=== PATIENT | male | born 1945 | race Hispanic/Latino ===

== ENCOUNTER 2018-06-18 11:18 | Inpatient (IN) | payer MEDICARE ==
[~2018-06-18] VITALS: Ht 172.7 cm; Wt 71.2 kg
[~2018-06-18 11:18] MED LIST: ACETAMINOPHEN650 MG PO; ASPIR 8181 MG PO; ASPIRIN325 MG PO; DOXYCYCLINE HY100 MG PO; FLOMAX0.4 MG PO; GABAPENTIN300 MG PO; METFORMIN HCL500 MG PO; METOPROLOL SUCC50 MG PO; PLAVIX75 MG PO
[2018-06-18] MEDS ORDERED: LACTATED RINGER'S 1,000 ML IV ONE (12:00)
[2018-06-18] MEDS ORDERED: VANCOMYCIN 1GM/NS 250 ML 250 ML IV ONE (12:00)
[2018-06-18] MEDS ORDERED: PIPER-TAZ 3.375 GM 50 ML IV ONE (12:00)
[2018-06-18] MEDS ORDERED: MORPHINE SULFATE 2 MG/ML SYR IV PRN (12:05)
[2018-06-18 12:07] LABS: BASOPHILS # (AUTO) 0.1 (0.0-0.1); BASOPHILS % 0.5 % (0.0-1.0); EOSINOPHILS # (AUTO) 0.1 (0.0-0.4); EOSINOPHILS % 0.9 % (0.0-6.0); HEMATOCRIT 35.4 % (38.2-49.6); HEMOGLOBIN 12.1 g/dL (14.0-18.0); LYMPHOCYTES # (AUTO) 3.4 (1.0-3.2); MEAN CORPUSCULAR HEMOGLOBIN 32.4 pg (28-32); MEAN CORPUSCULAR HGB CONC 34.2 g/dL (31-35); MEAN CORPUSCULAR VOLUME 94.7 fL (81-99); MONOCYTES # (AUTO) 1.1 (0.2-0.8); NEUTROPHILS # (AUTO) 10.6 (2.1-6.9); NEUTROPHILS % 69.3 % (38.7-80.0); PLATELET COUNT 550 x10e3/uL (140-360); RED BLOOD COUNT 3.74 x10e6/uL (4.3-5.7)
[2018-06-18 12:11] LABS: INR 1.18; PROTHROMBIN TIME 14.1 seconds (11.9-14.5)
[2018-06-18 12:12] LABS: PARTIAL THROMBOPLASTIN TIME 39.1 seconds (23.8-35.5)
[2018-06-18] MEDS ORDERED: ZOLPIDEM TARTRATE 5 MG TAB PO PRN (12:15)
[2018-06-18] MEDS ORDERED: DEXTROSE 50% SYRINGE 50 ML IV PRN (12:15)
[2018-06-18] MEDS ORDERED: HYDROCODONE/APAP 7.5MG-325MG 1 EA TAB PO PRN (12:15)
[2018-06-18] MEDS ORDERED: ONDANSETRON HCL INJ 2 MG/ML VIAL IV PRN (12:15)
[2018-06-18] MEDS ORDERED: CLONIDINE HCL 0.2 MG TAB PO PRN (12:15)
[2018-06-18] MEDS ORDERED: ENALAPRILAT IV INJ 1.25 MG/ML VIAL IV PRN (12:15)
[2018-06-18 12:22] LABS: ALANINE AMINOTRANSFERASE 19 IU/L (0-55); ALBUMIN 3.3 g/dL (3.5-5.0); ALBUMIN/GLOBULIN RATIO 0.7 (0.8-2.0); ALKALINE PHOSPHATASE 139 IU/L (40-150); ANION GAP 15.3 mmol/L (8-16); BLOOD UREA NITROGEN 24 mg/dL (7-26); BUN/CREATININE RATIO 25 (6-25); CALCIUM 10.4 mg/dL (8.4-10.2); CARBON DIOXIDE 27 mmol/L (22-29); CHLORIDE 100 mmol/L (98-107); CREATININE, SERUM 0.95 mg/dL (0.72-1.25); EST GLOMERULAR FILTRATION RATE > 60 ML/MIN (60-); GLUCOSE 273 mg/dL (74-118); POTASSIUM 4.3 mmol/L (3.5-5.1); SODIUM 138 mmol/L (136-145)
[2018-06-18] MEDS: INSULIN REGULAR, HUMAN 100 UNIT/1 ML 3ML VIAL SQ SCH ×2 (13:30→20:30)
--- NOTE | 2018-06-18 13:34 | Diagnostic Imaging Report ---
PROCEDURE:X-RAY RIGHT FOOT, COMPLETE COMPARISON:None. INDICATIONS:RIGHT FOOT INFECTION FINDINGS: There are no fractures, dislocations, lytic or blastic lesions. Questionable mild erosive changes of the medial tip of the first metatarsal bone. Adjacent mild soft tissue irregularity, may represent ulcer. Status post second toe amputation at the level of the metatarsophalangeal joint. Vascular calcifications. Hallus valgus deformity. CONCLUSION: Questionable mild erosive changes of the medial tip of the first metatarsal bone, could represent osteomyelitis in the appropriate clinical setting. Foot MRI can be obtained to confirm. Dictated by: Robi Lewis M.D. on 06/18/2018 at 13:39 Electronically approved by: Robi Lewis M.D. on 06/18/2018 at 13:39
[2018-06-18] MEDS ORDERED: DOXYCYCLINE PO (14:05)
[2018-06-18] MEDS ORDERED: LOSARTAN HCT PO (14:05)
[2018-06-18] MEDS ORDERED: GLIPIZIDE XL10 MG PO (14:05)
[2018-06-18] MEDS ORDERED: atorvastin PO (14:05)
[2018-06-18] MEDS: ACETAMINOPHEN 325 MG TAB PO PRN (15:11)
[2018-06-18 18:00] VITALS: BP 133/76
[2018-06-18] MEDS ORDERED: LACTATED RINGER'S 1,000 ML ONE (20:33)
[2018-06-18] MEDS: CEFAZOLIN SOD 1 GM VIAL IV SCH (20:45)
[2018-06-18 20:54] VITALS: BP 157/74
[2018-06-19] VITALS (9 sets, daily range): BP systolic 108–131; BP diastolic 57–66
[2018-06-19] MEDS: CEFAZOLIN SOD 1 GM VIAL IV SCH ×2 (05:39→12:40)
[2018-06-19 05:44] LABS: BASOPHILS # (AUTO) 0.1 (0.0-0.1); BASOPHILS % 0.6 % (0.0-1.0); EOSINOPHILS # (AUTO) 0.2 (0.0-0.4); EOSINOPHILS % 1.5 % (0.0-6.0); HEMATOCRIT 30.6 % (38.2-49.6); HEMOGLOBIN 10.7 g/dL (14.0-18.0); LYMPHOCYTES # (AUTO) 3.3 (1.0-3.2); LYMPHOCYTES % 26.5 % (18.0-39.1); MEAN CORPUSCULAR VOLUME 94.4 fL (81-99); MONOCYTES % 8.1 % (4.4-11.3); NEUTROPHILS # (AUTO) 7.8 (2.1-6.9); NEUTROPHILS % 62.9 % (38.7-80.0); PLATELET COUNT 455 x10e3/uL (140-360); RED BLOOD COUNT 3.24 x10e6/uL (4.3-5.7); RED CELL DISTRIBUTION WIDTH 11.9 % (11.7-14.4)
[2018-06-19] MEDS: ACETAMINOPHEN 325 MG TAB PO PRN (05:44)
[2018-06-19 05:57] LABS: ALANINE AMINOTRANSFERASE 14 IU/L (0-55); ALBUMIN 2.7 g/dL (3.5-5.0); ALBUMIN/GLOBULIN RATIO 0.7 (0.8-2.0); ALKALINE PHOSPHATASE 94 IU/L (40-150); BLOOD UREA NITROGEN 17 mg/dL (7-26); BUN/CREATININE RATIO 22 (6-25); CALCIUM 9.7 mg/dL (8.4-10.2); CARBON DIOXIDE 29 mmol/L (22-29); CHLORIDE 103 mmol/L (98-107); CHOLESTEROL 89 MD/DL (0-199); CREATININE, SERUM 0.76 mg/dL (0.72-1.25); EST GLOMERULAR FILTRATION RATE > 60 ML/MIN (60-); GLUCOSE 147 mg/dL (74-118); HDL CHOLESTEROL 22 MG/DL (40-60); LDL CHOLESTEROL 43 MG/DL (60-130); PHOSPHORUS 3.6 MG/DL (2.3-4.7); SODIUM 140 mmol/L (136-145); TRIGLYCERIDES 118 MG/DL (0-149)
[2018-06-19] MEDS ORDERED: CEFAZOLIN SOD 1 GM/D5W 50ML 50 ML IV SCH (06:00)
[2018-06-19 06:01] LABS: MAGNESIUM 1.1 MG/DL (1.3-2.1)
[2018-06-19] MEDS ORDERED: MAGNESIUM SULFATE 2GM/50ML 50 ML IV ONE (06:30)
--- NOTE | 2018-06-19 07:26 | History and Physical ---
PRIMARY CARE PHYSICIAN: Dr. Goddard CHIEF COMPLAINT: Right foot infection. HISTORY OF PRESENT ILLNESS: This is a 72-year-old man with a history of diabetes mellitus, type 2, now developing right foot 1st metatarsal joint infection at that site. Had been on antibiotics for about 2 weeks, but symptoms persisted. Was brought to the hospital by his . He denies any fevers. Denies any other symptoms at this time. The patient is a poor historian. PAST MEDICAL HISTORY: Diabetes mellitus, type 2, coronary artery disease, status post coronary artery bypass grafting in 2010, hypertension, hyperlipidemia, history of cigarette use. PAST SURGICAL HISTORY: Coronary artery bypass grafting. ALLERGIES: PER ELECTRONIC MEDICAL RECORDS. FAMILY HISTORY/SOCIAL HISTORY: Patient is and has 5 children. No alcohol or illicits. He quit cigarettes 3 weeks ago. MEDICATIONS: Per electronic medical record. REVIEW OF SYSTEMS: Denies any dizziness, chest pain, shortness of breath, fever, chills, sweats, nausea, vomiting, diarrhea, back pain, headache. PHYSICAL EXAMINATION VITAL SIGNS: Have been reviewed. GENERAL: A tired-appearing man resting in bed. HEENT: Anicteric. Pupils respond to light. No oral lesions. CARDIOVASCULAR: Normal S1 and S2. LUNGS: Moderate breath sounds. ABDOMEN: Soft, nontender and nondistended. EXTREMITIES: No edema or calf tenderness. On the left foot, he does have a bunion on the left foot. On the right foot, he has an ulcer at the bunion site with some pus. No real odor. There is no tenderness. Foot is warm. Dorsalis pedis is 1-2+. SKIN: Dry. PSYCHIATRIC: Flat affect. NEUROLOGICAL: Alert and oriented times 3. LABS: Reviewed. MEDICATIONS: Reviewed. ASSESSMENT AND PLAN: A 72-year-old man with: 1. Likely osteomyelitis to the right foot. 2. Hypomagnesemia. 3. Diabetes mellitus, type 2. 4. History of cigarette use. 5. Insomnia. 6. Hyperlipidemia. 7. Hypertension. PLAN 1. Continue antibiotics. 2. Consult infectious disease. 3. Follow up podiatry recommendations. 4. Obtain MRI of the foot to confirm osteomyelitis. 5. Follow up blood cultures and obtain wound culture. 6. Use Lovenox and Pepcid for prophylaxis. 7. Follow up recommendations and cultures. Job#: [id number] FABIÁN
[2018-06-19] MEDS: HYDROCHLOROTHIAZIDE 25 MG TAB PO SCH (08:25)
[2018-06-19] MEDS: FAMOTIDINE 20 MG TAB PO SCH ×2 (08:25→17:51)
[2018-06-19] MEDS: INSULIN REGULAR, HUMAN 100 UNIT/1 ML 3ML VIAL SQ SCH ×4 (08:25→21:35)
[2018-06-19] MEDS: ASPIRIN 81 MG ENTERIC COATED PO SCH (08:25)
[2018-06-19] MEDS ORDERED: [UNRECOGNIZED DRUG - MIXTURE] PO SCH (09:00)
--- NOTE | 2018-06-19 12:05 | Diagnostic Imaging Report ---
TECHNIQUE: Magnetic resonance imaging of the RIGHT foot was performed WITHOUT injected contrast. HISTORY: Foot pain COMPARISON: None available. DISCUSSION: Soft tissue ulceration at the medial forefoot adjacent to the metatarsal head. Bone marrow edema and T1 replacement of the first metatarsal head and mildly involving the base of the proximal phalanx. Effusion of the first MTP joint. Mild atrophy of the foot musculature. Soft tissue edema surrounding the hallux. No abscess. IMPRESSION: Osteomyelitis of the first metatarsal head and possible osteomyelitis proximal phalanx with septic arthritis first MTP joint. Signed by: Dr. Juan Alberto Flower M.D. on 06/19/2018 12:02 PM
[2018-06-19] MEDS: VANCOMYCIN 1GM/NS 250 ML 250 ML IV SCH (12:39)
[2018-06-19] MEDS: LOSARTAN POTASSIUM 100 MG TAB PO SCH (12:39)
--- NOTE | 2018-06-19 13:47 | Consultation ---
DATE OF CONSULTATION: June 19, 2018 ATTENDING PHYSICIAN: Dr. Jay Jamison REASON FOR CONSULTATION: Osteomyelitis. Thank you, Dr. Jamison, for asking me to see this patient. HISTORY: The patient is a 72-year-old man referred for osteomyelitis. He presented to the emergency department yesterday with worsening right foot ulcer. He denies fever and chills. The ulcer began about 3 weeks ago abruptly. The patient does not recall how the ulcer started and denies trauma. The patient was evaluated outpatient by the program advocate and treated with oral antibiotic without response. In the emergency department, he was noted to have temperature of 98 degrees Fahrenheit, pulse 85, respiratory rate 18, blood pressure 134/71. Initial laboratory studies showed blood leukocyte count of 15,240 with 69.3% neutrophils and blood glucose 273. PAST MEDICAL HISTORY: Diabetes mellitus type 2, hypertension, hyperlipidemia and coronary artery disease. PAST SURGICAL HISTORY: Coronary artery bypass, amputation of 2nd toe of the left foot, and amputation of the 2nd toe of the right foot. ALLERGIES: NO KNOWN DRUG ALLERGIES. MEDICATIONS: The current antibiotics are cefazolin 1 gram IV piggyback q.8 h. and vancomycin 1 gram IV piggyback daily. Patient received Zosyn 3.375 grams IV piggyback once. IMMUNIZATIONS: He does not recall receiving tetanus-diphtheria vaccine in the past 10 years. Also, he does not recall receiving a pneumococcal vaccination. FAMILY HISTORY: Noncontributory. SOCIAL HISTORY: He smoked a pack of cigarettes a day from age 17 to 2 weeks ago. He denies alcohol use. REVIEW OF SYSTEMS: As per present illness. He denies fever, chills, cough, shortness of breath, chest pain, nausea, vomiting, diarrhea and dysuria. Also denies right foot pain. PHYSICAL EXAMINATION VITAL SIGNS: T-max 98.7, pulse 74, respiratory rate 20. Blood pressure 108/59. Weight 157 pounds. GENERAL: No acute distress. HEENT: Normocephalic. There is no icterus or injection of the conjunctivae. There is no ear or nasal discharge. Moist oral mucosa with poor dentition. No pharyngeal erythema or exudate. NECK: Supple. No lymphadenopathy or meningismus. LUNGS: Clear to auscultation bilaterally. HEART: Normal S1 and S2. Regular. ABDOMEN: Soft and nontender. EXTREMITIES: There is mild erythema of the right forefoot. There is an ulcer over the medial aspect of the 1st metatarsophalangeal joint of the right foot with 100% slough and malodorous discharge. There is no tenderness on palpation. The dorsalis pedis and posterior tibial pulses are difficult to palpate. There is no edema, clubbing or cyanosis. SKIN: As per extremities. MACHINE SET UP OPERATOR PAPER GOODS: Awake, alert and oriented to person, place and time. There is decreased sensation on monofilament examination of the feet. Nonfocal. LABORATORY AND DIAGNOSTICS: WBC 12,440, hemoglobin 10.7, platelets 455,000, neutrophils 62.9, lymphs 26.5, monos 8.1, eosinophils 1.5, basophils 0.6. Erythrocyte sedimentation rate 91. BUN 17, creatinine 0.7, and blood glucose 127. Blood culture showed no growth. Right foot MRI showed osteomyelitis of the 1st metatarsal head and possible osteomyelitis of the proximal phalanx with septic arthritis of the 1st metatarsophalangeal joint. IMPRESSION 1. Infected right diabetic foot ulcer. 2. Cellulitis of the right foot. 3. Osteomyelitis of the right 1st metatarsal head and proximal phalanx. 4. Septic arthritis of the right 1st metatarsophalangeal joint. 5. Tobacco use disorder. 6. Diabetes mellitus, type 2, with peripheral neuropathy, uncontrolled. PLAN 1. Check arterial ultrasound of the lower extremities. 2. Await possible right 1st metatarsophalangeal joint aspiration. 3. Change cephazolin to Zosyn 3.375 grams IV piggyback q.8 h., infuse over 4 hours. 4. Administer tetanus-diphtheria vaccination today and a pneumococcal vaccination prior to discharge. 5. Smoking cessation counseling provided to the patient, and he understands. He denies pharmacologic intervention at this time. Job#: [id number]
[2018-06-19] MEDS: PIPER-TAZ 3.375 GM 50 ML IV SCH ×2 (14:00→21:30)
[2018-06-19] MEDS: ENOXAPARIN SOD INJ 40 MG/0.4 ML SYR SC SCH (17:51)
--- NOTE | 2018-06-19 19:53 | Consultation ---
DATE OF CONSULTATION: June 19, 2018 CHIEF COMPLAINT/HISTORY OF CHIEF COMPLAINT: Mr. Gaspar is a pleasant 72-year-old male who has a long history of diabetes and has recently been experiencing drainage, swelling and redness about the 1st metatarsophalangeal joint of the right foot. Apparently last year he underwent an amputation of the 2nd digit of that same foot here by Dr. Connie Gutiérrez. She has recently seen him on an outpatient basis in her office and had him on oral antibiotics and local wound care for this current wound. The patient's states that the condition worsened and the additional symptom of redness and drainage ensued, and, therefore, she brought him to the emergency room and he has now been admitted. The patient's previous medical history does include diabetes and coronary artery disease having had a coronary artery bypass graft in 2010. He has a history also of hypertension, hyperlipidemia and has a long history of smoking. He states he quit smoking 2 weeks ago but has smoked since 17 years of age otherwise PREVIOUS SURGICAL HISTORY: Includes the coronary artery disease with bypass grafting. ALLERGIES: NO KNOWN DRUG ALLERGIES. SOCIAL HISTORY: The patient is and lives with his . He has 5 children. MEDICATIONS: Well documented elsewhere within the chart. REVIEW OF SYSTEMS: The patient has no other significant positives on his review of systems other than a wound in the right foot. He denies fever, nausea, vomiting or chest pain. PHYSICAL EVALUATION OF LOWER EXTREMITIES: Vascular status: The patient has nonpalpable pedal pulses near the dorsalis pedis or posterior tibial. Arterial Dopplers and ultrasound have previously been ordered and are not yet available. Neurological: The patient has a loss of protective sensation as evidenced by [place]-Robbi monofilament testing. Dermatologic: There is a large ulcer present on the medial aspect of the 1st metatarsophalangeal joint of the right foot. The wound appears to be full thickness down to the capsule and bone with a loose appearing septic joint that is draining. Musculoskeletal: As above. He is status post amputation of the 2nd digit and now has a septic arthritis with osteomyelitis of the 1st metatarsophalangeal joint. MRI is positive for the same indicating osteomyelitis and septic arthritis of the 1st metatarsophalangeal joint. He is currently on IV antibiotics and he is being seen by infectious disease. Blood cultures and wound cultures have been obtained. RECOMMENDATIONS: At this point would be for surgical intervention to include at the very least an I\T\D with bone debridement of the joint and more likely amputation of the 1st digit proximal to the metatarsophalangeal joint. Dr. Ponce is his fruit raiser and has been notified of his admission and will follow with him tomorrow to make further recommendations for more definitive care. In the interim, Aquacel [employer] has been ordered to applied to the wound once daily by [place] of wound care and this will be continued until surgical intervention or appropriate treatment as directed by Dr. Gutiérrez. Job#: [id number]
[2018-06-19] MEDS ORDERED: ATORVASTATIN 10 MG PO SCH (21:00)
[2018-06-19] MEDS: ATORVASTATIN 10 MG TAB PO SCH (21:30)
[2018-06-20] VITALS (8 sets, daily range): BP systolic 106–132; BP diastolic 55–63
[2018-06-20] MEDS: PIPER-TAZ 3.375 GM 50 ML IV SCH ×3 (05:27→21:48)
[2018-06-20] MEDS: FAMOTIDINE 20 MG TAB PO SCH ×2 (08:24→17:59)
[2018-06-20] MEDS: ASPIRIN 81 MG ENTERIC COATED PO SCH (08:24)
[2018-06-20] MEDS: INSULIN REGULAR, HUMAN 100 UNIT/1 ML 3ML VIAL SQ SCH ×4 (08:40→21:00)
--- NOTE | 2018-06-20 09:35 | Progress Note ---
DATE: June 20, 2018 The patient was seen at bedside. Full-thickness ulcer down to the bone to the right 1st MPJ. Pedal pulses are diminished. Protective threshold is diminished, intrinsic type of foot. He has a history of amputations that have healed with advanced local wound care. The ulcer probes down to the bone. The bone is exposed. Metatarsal head is eroded. It is soft. There is osteomyelitis to the area. His white blood count is elevated. It is trending down now secondary to the IV antibiotics. The MRI was positive for osteomyelitis of the 1st head in the proximal phalanx with septic arthritis. ASSESSMENT 1. Ulcer, grade 3, right hallux. 2. Diabetes with neuropathy and peripheral vascular disease. PLAN: I discussed treatment with the patient. He is n.p.o. after midnight today. I am going to take him to the OR for debridement of nonviable tissue to include probably a partial 1st metatarsal amputation. After surgery, I suspect he is going to need wound VAC and IV antibiotics. For discharge planning on the long run, he will need a wound VAC to go home. I suspect IV antibiotics. He is scheduled for surgery tomorrow at 6:30 p.m. He is to be consented tonight. I discussed with the patient and family. They are aware of the risks and complications. I will continue to follow. Job#: [id number] FABIÁN
--- NOTE | 2018-06-20 10:51 | Cardiology Report ---
DATE OF STUDY: June 17, 2018 DOPPLER SCAN OF LOWER EXTREMITY ARTERIES The lower extremity arteries were interrogated using the duplex scanning method. No segmental pressure measurements or ankle brachial indices submitted for interpretation. Duplex scan showed velocity of 2 meters per second in the right common femoral artery, and in the right femoral artery in the midportion was 1.8 meters per second. Further distally beyond the popliteal artery, the waveform became monophasic. On the left side, velocity was 2.2 meters per second in the distal left common femoral artery gradually decreasing to zero in the distal left femoral artery. This, however, bypass graft which showed biphasic waveform and still patent. CONCLUSION 1. Patent left femoral bypass graft with [place] distal left femoral artery being occluded. 2. Moderate stenosis involving both common femoral arteries with velocity in range of 2 to 2.2 meter per second. 3. Probable high-grade stenosis in the distal right femoral artery with monophasic waveform in the popliteal artery and beyond on the right side. 4. No segmental pressure measurements or ankle brachial indices submitted for interpretation. Job#: [id number] RI cc:HAYDEN DE LEÓN MD
[2018-06-20] MEDS: LOSARTAN POTASSIUM 100 MG TAB PO SCH (11:36)
[2018-06-20] MEDS: HYDROCHLOROTHIAZIDE 25 MG TAB PO SCH (11:36)
[2018-06-20] MEDS: VANCOMYCIN 1GM/NS 250 ML 250 ML IV SCH (12:28)
[2018-06-20] MEDS: ENOXAPARIN SOD INJ 40 MG/0.4 ML SYR SC SCH (17:00)
[2018-06-20] MEDS: ATORVASTATIN 10 MG TAB PO SCH (21:08)
[2018-06-21] VITALS (8 sets, daily range): BP systolic 118–147; BP diastolic 58–70
[2018-06-21] MEDS: PIPER-TAZ 3.375 GM 50 ML IV SCH ×3 (05:22→21:45)
[2018-06-21] MEDS ORDERED: NEOSTIGMINE 1 MG/ML 10ML VIAL ONE (05:47)
[2018-06-21] MEDS ORDERED: BUPIVACAINE HCL 0.5% INJ 30 ML VIAL INJ ONE (05:48)
[2018-06-21] MEDS ORDERED: VANCOMYCIN HCL 1 GM VIAL ONE (06:27)
[2018-06-21] MEDS ORDERED: BACITRACIN 50,000 UNIT VIAL ONE (06:45)
--- NOTE | 2018-06-21 08:09 | Operative Report ---
DATE OF PROCEDURE: June 21, 2018 FISH BIN TENDER: None. PREOPERATIVE DIAGNOSES 1. Osteomyelitis, right 1st metatarsal. 2. Septic metatarsophalangeal joint. 3. Diabetic foot ulcer, grade 3. POSTOPERATIVE DIAGNOSES 1. Osteomyelitis, right 1st metatarsal. 2. Septic metatarsophalangeal joint. 3. Diabetic foot ulcer, grade 3. PROCEDURES 1. Debridement to include bone right 1st metatarsophalangeal joint. 2. Application of antibiotic-impregnated beads. PATHOLOGY: Bone cultures and sensitivity. ANESTHESIA: General anesthetic with 10 mL of 0.5% Marcaine plain given postop. COMPLICATIONS: None. CONDITION: Stable. PROCEDURE IN DETAIL: Under mild sedation, patient was brought to the operating room, placed on the operating table in the supine position. Following IV sedation, anesthesia was obtained with the general anesthetic. At this point, right foot was scrubbed, prepped, and draped in the usual aseptic manner. Head was then lowered to the table. Attention was then directed to the medial aspect of the right foot, where 2 semielliptical incisions were made overlying the ulcer of the MPJ. The ulcers were removed. The incision was taken down to the bone. The ulcer was sent for pathology. Attention was then directed to the septic MPJ, where it was noted that the medial aspect of the head nonviable tissue utilizing an oscillating saw of the nonviable bone was removed. The base of the 1st metatarsal was also debrided secondary to the nonviable tissue. The medial aspect of the metatarsal, the cortex of the bone at that point was intact, so it was left intact. Once all nonviable tissue was removed with excisional debridement with the 15-blade, the bone rongeur, and the bone blade. Cultures and sensitivities were taken of the bone. Then, the area was flushed with copious irrigation with bacitracin with a pulse waxer. At this point, the wound was packed with antibiotic-impregnated beads, 4 x 4's with Betadine Kerlix and an Andrew bandage was applied. Patient tolerated the procedure and anesthesia well without complications, was transferred to recovery room. Will be readmitted back into the hospital. He is to be nonweightbearing to the right foot. I am going to recommend that he gets an opinion for a possible vascular intervention secondary to the abnormal vascular studies. A wound VAC will be applied by wound care. Regarding discharge planning, I suspect he is either going to go to an LTAC or going to go home with IV antibiotics. If he goes home, he is going to need to follow up with me and wound care. He is also going to need to be set up for a home wound VAC. I will continue to follow. He is aware that he is still high risk for amputation. This was limb salvage attempt. He needs to be compliant. He is aware of this. Job#: [id number] RENUKA
[2018-06-21] MEDS: HYDROCHLOROTHIAZIDE 25 MG TAB PO SCH (08:37)
[2018-06-21] MEDS: INSULIN REGULAR, HUMAN 100 UNIT/1 ML 3ML VIAL SQ SCH ×4 (08:37→21:00)
[2018-06-21] MEDS: LOSARTAN POTASSIUM 100 MG TAB PO SCH (08:37)
[2018-06-21] MEDS: FAMOTIDINE 20 MG TAB PO SCH ×2 (08:37→17:49)
[2018-06-21] MEDS: ASPIRIN 81 MG ENTERIC COATED PO SCH (08:37)
[2018-06-21 09:10] LABS: BASOPHILS # (AUTO) 0.1 (0.0-0.1); BASOPHILS % 0.6 % (0.0-1.0); EOSINOPHILS # (AUTO) 0.2 (0.0-0.4); EOSINOPHILS % 1.4 % (0.0-6.0); HEMATOCRIT 29.7 % (38.2-49.6); HEMOGLOBIN 10.1 g/dL (14.0-18.0); LYMPHOCYTES # (AUTO) 2.7 (1.0-3.2); LYMPHOCYTES % 24.2 % (18.0-39.1); MEAN CORPUSCULAR HEMOGLOBIN 32.5 pg (28-32); MEAN CORPUSCULAR VOLUME 95.5 fL (81-99); MONOCYTES # (AUTO) 0.9 (0.2-0.8); NEUTROPHILS # (AUTO) 7.2 (2.1-6.9); NEUTROPHILS % 65.3 % (38.7-80.0); PLATELET COUNT 486 x10e3/uL (140-360); RED BLOOD COUNT 3.11 x10e6/uL (4.3-5.7)
[2018-06-21 09:33] LABS: ANION GAP 12.9 mmol/L (8-16); BLOOD UREA NITROGEN 14 mg/dL (7-26); BUN/CREATININE RATIO 18 (6-25); CARBON DIOXIDE 30 mmol/L (22-29); CHLORIDE 101 mmol/L (98-107); EST GLOMERULAR FILTRATION RATE > 60 ML/MIN (60-); GLUCOSE 248 mg/dL (74-118); POTASSIUM 3.9 mmol/L (3.5-5.1); SODIUM 140 mmol/L (136-145)
[2018-06-21] MEDS: VANCOMYCIN 1GM/NS 250 ML 250 ML IV SCH (12:42)
[2018-06-21] MEDS ORDERED: KETAMINE HCL INJ 50 MG/ML 10 ML VIAL ONE (14:24)
[2018-06-21] MEDS ORDERED: FENTANYL CITRATE/PF 100MCG/2 ML INJ ONE (14:24)
[2018-06-21] MEDS ORDERED: MIDAZOLAM HCL 2 MG/2 ML VIAL ONE (14:24)
[2018-06-21] MEDS ORDERED: DEXAMETHASONE SOD PHOS INJ 4 MG/ML VIAL ONE (17:38)
[2018-06-21] MEDS ORDERED: SEVOFLURANE INHAL SOLN 250 ML PEN BTL ONE (17:38)
[2018-06-21] MEDS ORDERED: PROPOFOL IV EMULSION 10 MG/ML 20 ML VIAL ONE (17:38)
[2018-06-21] MEDS ORDERED: LIDOCAINE HCL 2% LOCAL INJ 5 ML SDV VIAL INJ ONE (17:38)
[2018-06-21] MEDS: ENOXAPARIN SOD INJ 40 MG/0.4 ML SYR SC SCH (17:49)
[2018-06-21] MEDS ORDERED: HYDROMORPHONE 0.2MG/ML-SOD CHL 30ML PCA SYRINGE IV ONE (18:29)
[2018-06-21] MEDS: ATORVASTATIN 10 MG TAB PO SCH (21:45)
[2018-06-22] VITALS: BP 117/63
[2018-06-22 04:10] VITALS: BP 106/63
[2018-06-22] MEDS: PIPER-TAZ 3.375 GM 50 ML IV SCH (05:16)
[2018-06-22 08:17] VITALS: BP 114/59
[2018-06-22 08:25] VITALS: BP 114/59
[2018-06-22] MEDS: HYDROCHLOROTHIAZIDE 25 MG TAB PO SCH (08:26)
[2018-06-22] MEDS: FAMOTIDINE 20 MG TAB PO SCH (08:26)
[2018-06-22] MEDS: ASPIRIN 81 MG ENTERIC COATED PO SCH (08:26)
[2018-06-22] MEDS: LOSARTAN POTASSIUM 100 MG TAB PO SCH (08:27)
[2018-06-22] MEDS: INSULIN REGULAR, HUMAN 100 UNIT/1 ML 3ML VIAL SQ SCH ×2 (08:27→11:30)
[2018-06-22] MEDS: VANCOMYCIN 1GM/NS 250 ML 250 ML IV SCH (11:27)
[2018-06-22 12:00] VITALS: BP 140/69
--- NOTE | 2018-06-27 18:08 | Progress Note ---
DATE: June 20, 2018 TIME: 7:00 a.m. Overnight, no events. REVIEW OF SYSTEMS: Denies any dizziness, chest pain. PHYSICAL EXAMINATION VITAL SIGNS: Reviewed. GENERAL: A tired-appearing man resting in bed. HEENT: Anicteric. CARDIOVASCULAR: Normal S1, S2. No murmurs. ABDOMEN: Soft, nontender. EXTREMITIES: The right foot has also the bunion site with pus. SKIN: Dry. PSYCHIATRIC: Flat affect. NEUROLOGIC: Awake, alert. LABS: Reviewed. MEDICATIONS: Reviewed. ASSESSMENT: A 72-year-old man. 1. Osteomyelitis of the right foot/septic arthritis at the metatarsophalangeal joint of the right foot. 2. Hypomagnesemia. 3. Diabetes mellitus, type 2. 4. History of cigarette use. 5. Insomnia. 6. Hyperlipidemia. 7. Hypertension. PLAN 1. Continue the antibiotics. 2. Followup surgical plan. 3. Continue current care with antibiotics. Job#: [id number] CQ
--- NOTE | 2018-06-27 18:21 | Discharge Summary ---
PRINCIPAL DIAGNOSES 1. Osteomyelitis of the right foot. 2. Septic arthritis of the 1st metatarsophalangeal joint of the right foot. 3. Hypomagnesemia. 4. Diabetes mellitus, type 2. 5. History of cigarette use. 6. Insomnia. 7. Hyperlipidemia. 8. Hypertension. SECONDARY DIAGNOSIS: Diabetes mellitus, type 2. CHIEF COMPLAINT: Infection in the right foot. HISTORY OF PRESENT ILLNESS: This is a 72-year-old man with infection in the right foot. Please refer to the H and P for further details. HOSPITAL COURSE: The patient has osteomyelitis of the right foot and septic arthritis of the 1st MTP joint of the right foot. He received IV antibiotics and underwent surgical management. Also treated for diabetes mellitus, type 2. He had hyperlipidemia and hypertension treated with medication regimen. The patient's hemoglobin A1c was 9.4 and LDL 43. The patient received medication regimen. The patient was subsequently discharged to a alf facility. DISCHARGE MEDICATIONS: Per electronic medical record. FOLLOWUP: With primary care doctor in 1 week. CONDITION ON DISCHARGE: Stable and improving. DISCHARGE LOCATION: Skilled facility. HAYDEN DE LEÓN MD Job#: [id number]
--- NOTE | 2018-06-27 18:33 | Progress Note ---
DATE: June 21, 2018 TIME OF SERVICE: 8 a.m. SUBJECTIVE: Overnight the patient had surgical management. REVIEW OF SYSTEMS: Denies any dizziness, chest pain. PHYSICAL EXAMINATION VITAL SIGNS: Reviewed. GENERAL: A tired-appearing man resting in bed. HEENT: Anicteric. CARDIOVASCULAR: Normal S1, S2. No murmurs. ABDOMEN: Soft, nontender. EXTREMITIES: No edema. On the right foot there is a dressing in place. SKIN: Dry. PSYCHIATRIC: Flat affect. LABS: Reviewed. MEDICATIONS: Reviewed. ASSESSMENT: A 72-year-old man. 1. Osteomyelitis of the right foot/septic arthritis at the metatarsophalangeal joint of the right foot, status post surgical management. 2. Diabetes mellitus, type 2. 3. History of cigarette use. 4. Insomnia. 5. Hyperlipidemia. 6. Hypertension. PLAN 1. Continue the antibiotics. 2. The patient is status post surgical management. 3. Continue to monitor closely. 4. Follow up labs. Job#: [id number]
== END 2018-06-22 14:45 | DRG 629 ==
LOC: ER 11:18 → ERHOLD 12:06 → MED/SURG3 18:09
PROVIDERS: ADMIT Internal Medicine; ATTEND Internal Medicine
PROC: 3E0V329 Introduction of Other Anti-infective into Bones, Percutaneous Approach (ICD-10-PCS; 2018-06-21)
PROC: 0QBN0ZZ Excision of Right Metatarsal, Open Approach (ICD-10-PCS; principal; 2018-06-21 06:30)
DX: E11.69 Type 2 diabetes mellitus with other specified complication (principal); M86.171 Other acute osteomyelitis, right ankle and foot; L03.116 Cellulitis of left lower limb; M00.871 Arthritis due to other bacteria, right ankle and foot; L97.514 Non-pressure chronic ulcer of other part of right foot with necrosis of bone; E83.42 Hypomagnesemia; G47.00 Insomnia, unspecified; E11.42 Type 2 diabetes mellitus with diabetic polyneuropathy; E11.621 Type 2 diabetes mellitus with foot ulcer; I25.10 Atherosclerotic heart disease of native coronary artery without angina pectoris; I11.9 Hypertensive heart disease without heart failure; Z95.1 Presence of aortocoronary bypass graft; E78.5 Hyperlipidemia, unspecified; Z87.891 Personal history of nicotine dependence; K21.9 Gastro-esophageal reflux disease without esophagitis; Z89.422 Acquired absence of other left toe(s); Z89.421 Acquired absence of other right toe(s); E11.65 Type 2 diabetes mellitus with hyperglycemia
CPT/HCPCS: 36415; 80048; 80053; 80061; 80202; 82948; 83036; 83735; 84100; 85025; 85610; 85651; 85730; 87040; 87071; 87075; 87186; 87205; 88305; 88311; 93925; 96361; 97139; 97605; 99284; J0690; J1100; J1650; J2001; J2250; J2543; J2710; J3370; J7120

== ENCOUNTER → 2018-07-20 | Outpatient (RCR) | payer MEDICARE ==
[~2018-07-20] MED LIST changes: +COLLAGENASE OINTMENT 30 GM TUBE ONE; +DOXYCYCLINE PO; +GLIPIZIDE XL10 MG PO; +LOSARTAN HCT PO; +MINERAL OIL/PETROLAT/GLYCERI 6OZ BTL ONE; +atorvastin PO
== END ==
LOC: WCC 07-09 12:30
PROVIDERS: ATTEND Podiatrist Foot & Ankle Surgery
DX: E11.621 Type 2 diabetes mellitus with foot ulcer (principal); E11.65 Type 2 diabetes mellitus with hyperglycemia; E11.649 Type 2 diabetes mellitus with hypoglycemia without coma; Y83.8 Other surgical procedures as the cause of abnormal reaction of the patient, or of later complication, without mention of misadventure at the time of the procedure; M86.171 Other acute osteomyelitis, right ankle and foot; L97.516 Non-pressure chronic ulcer of other part of right foot with bone involvement without evidence of necrosis; Z01.810 Encounter for preprocedural cardiovascular examination; Z01.811 Encounter for preprocedural respiratory examination
CPT/HCPCS: 36415; 82948

== ENCOUNTER → 2018-07-25 | Outpatient (CLI) | payer MEDICARE ==
[~2018-07-25] MED LIST changes: -MINERAL OIL/PETROLAT/GLYCERI 6OZ BTL ONE; +MUPIROCIN 2% OINT 22 GM TUBE ONE
--- NOTE | 2018-07-25 16:51 | Diagnostic Imaging Report ---
EXAM: XR CHEST 2 VIEWS DATE: 07/25/2018 3:31 PM INDICATION: PICC placement. Osteomyelitis. COMPARISON: None FINDINGS: Lines and Tubes: Right PICC with tip overlying SVC. Heart and Mediastinum: No acute cardiomediastinal findings. Sternotomy changes and coronary artery vascular calcifications. Lungs and Pleura: No significant pleural effusion, pneumothorax, or focal consolidation. Small nodular densities in the lung bases presumed nipple shadows. Bones and Soft Tissues: No acute findings. IMPRESSION: 1. Right PICC as above. 2. Presumed nipple shadows. Nonemergent follow-up chest x-ray with nipple markers recommended. Signed by: Dr. Tyler Colvin MD on 07/25/2018 4:48 PM
== END ==
LOC: WCC 13:53
PROVIDERS: ATTEND Internal Medicine Infectious Disease
DX: E11.621 Type 2 diabetes mellitus with foot ulcer (principal); E11.65 Type 2 diabetes mellitus with hyperglycemia; E11.649 Type 2 diabetes mellitus with hypoglycemia without coma; Y83.8 Other surgical procedures as the cause of abnormal reaction of the patient, or of later complication, without mention of misadventure at the time of the procedure; M86.171 Other acute osteomyelitis, right ankle and foot; L97.516 Non-pressure chronic ulcer of other part of right foot with bone involvement without evidence of necrosis; L97.419 Non-pressure chronic ulcer of right heel and midfoot with unspecified severity; B96.89 Other specified bacterial agents as the cause of diseases classified elsewhere; Z01.810 Encounter for preprocedural cardiovascular examination; Z01.811 Encounter for preprocedural respiratory examination
CPT/HCPCS: 36415; 36569; 71046; 82948; 93005

== ENCOUNTER 2018-07-27 13:26 | Outpatient (RCR) | payer MEDICARE | END 2018-08-19 | LOC: EDBD → WCC 13:26 | PROVIDERS: ATTEND Internal Medicine Infectious Disease | DX: E11.621 Type 2 diabetes mellitus with foot ulcer (principal); E11.649 Type 2 diabetes mellitus with hypoglycemia without coma; E11.65 Type 2 diabetes mellitus with hyperglycemia; Y83.8 Other surgical procedures as the cause of abnormal reaction of the patient, or of later complication, without mention of misadventure at the time of the procedure; M86.171 Other acute osteomyelitis, right ankle and foot; L97.516 Non-pressure chronic ulcer of other part of right foot with bone involvement without evidence of necrosis; L97.419 Non-pressure chronic ulcer of right heel and midfoot with unspecified severity; B96.89 Other specified bacterial agents as the cause of diseases classified elsewhere; Z01.810 Encounter for preprocedural cardiovascular examination; Z01.811 Encounter for preprocedural respiratory examination ==

== ENCOUNTER → 2018-07-27 | Outpatient (CLI) | payer MEDICARE ==
[~2018-07-27] MED LIST changes: -COLLAGENASE OINTMENT 30 GM TUBE ONE; -MUPIROCIN 2% OINT 22 GM TUBE ONE
== END ==
LOC: WCC 13:26
PROVIDERS: ATTEND Internal Medicine Infectious Disease
DX: E11.621 Type 2 diabetes mellitus with foot ulcer (principal); E11.649 Type 2 diabetes mellitus with hypoglycemia without coma; E11.65 Type 2 diabetes mellitus with hyperglycemia; Y83.8 Other surgical procedures as the cause of abnormal reaction of the patient, or of later complication, without mention of misadventure at the time of the procedure; M86.171 Other acute osteomyelitis, right ankle and foot; L97.516 Non-pressure chronic ulcer of other part of right foot with bone involvement without evidence of necrosis; L97.419 Non-pressure chronic ulcer of right heel and midfoot with unspecified severity; B96.89 Other specified bacterial agents as the cause of diseases classified elsewhere; Z01.810 Encounter for preprocedural cardiovascular examination; Z01.811 Encounter for preprocedural respiratory examination

== ENCOUNTER 2018-08-17 09:30 | Outpatient (RCR) | payer MEDICARE ==
[~2018-08-17 09:30] MED LIST changes: +LIDOCAINE/PRILOCAINE 2.5-2.5% KIT ONE
== END 2018-08-19 ==
LOC: EDBD → WCC 09:30
PROVIDERS: ATTEND Internal Medicine Infectious Disease
DX: E11.621 Type 2 diabetes mellitus with foot ulcer (principal); E11.65 Type 2 diabetes mellitus with hyperglycemia; E11.649 Type 2 diabetes mellitus with hypoglycemia without coma; Y83.8 Other surgical procedures as the cause of abnormal reaction of the patient, or of later complication, without mention of misadventure at the time of the procedure; M86.171 Other acute osteomyelitis, right ankle and foot; L97.516 Non-pressure chronic ulcer of other part of right foot with bone involvement without evidence of necrosis; L97.419 Non-pressure chronic ulcer of right heel and midfoot with unspecified severity; B96.89 Other specified bacterial agents as the cause of diseases classified elsewhere; Z01.810 Encounter for preprocedural cardiovascular examination; Z01.811 Encounter for preprocedural respiratory examination
CPT/HCPCS: 11042 ×2; 36415; 82948; 97605 ×8; G0277 ×14

== ENCOUNTER 2018-09-14 14:16 | Outpatient (RCR) | payer MEDICARE ==
[~2018-09-14 14:16] MED LIST changes: -LIDOCAINE/PRILOCAINE 2.5-2.5% KIT ONE
== END 2018-09-19 ==
LOC: WCC 14:16
PROVIDERS: ATTEND Podiatrist Foot & Ankle Surgery
DX: E11.621 Type 2 diabetes mellitus with foot ulcer (principal); E11.65 Type 2 diabetes mellitus with hyperglycemia; E11.649 Type 2 diabetes mellitus with hypoglycemia without coma; Y83.8 Other surgical procedures as the cause of abnormal reaction of the patient, or of later complication, without mention of misadventure at the time of the procedure; M86.171 Other acute osteomyelitis, right ankle and foot; L97.516 Non-pressure chronic ulcer of other part of right foot with bone involvement without evidence of necrosis; S80.811A Abrasion, right lower leg, initial encounter; R23.8 Other skin changes; B96.89 Other specified bacterial agents as the cause of diseases classified elsewhere; Z01.810 Encounter for preprocedural cardiovascular examination; Z01.811 Encounter for preprocedural respiratory examination
CPT/HCPCS: 11042; 15275; 36415 ×13; 82948 ×13; 99213; G0277 ×15; Q4121

== ENCOUNTER 2018-09-28 11:53 | Outpatient (RCR) | payer MEDICARE ==
[2018-09-28] MEDS ORDERED: LIDOCAINE/PRILOCAINE 2.5-2.5% KIT ONE ×2 (14:29→14:32)
== END 2018-10-19 ==
LOC: WCC 11:53
PROVIDERS: ATTEND Internal Medicine Infectious Disease
DX: E11.621 Type 2 diabetes mellitus with foot ulcer (principal); E11.649 Type 2 diabetes mellitus with hypoglycemia without coma; E11.65 Type 2 diabetes mellitus with hyperglycemia; Y83.8 Other surgical procedures as the cause of abnormal reaction of the patient, or of later complication, without mention of misadventure at the time of the procedure; L97.516 Non-pressure chronic ulcer of other part of right foot with bone involvement without evidence of necrosis; R23.8 Other skin changes; Z01.810 Encounter for preprocedural cardiovascular examination; Z01.811 Encounter for preprocedural respiratory examination
CPT/HCPCS: 36415; 82948

== ENCOUNTER 2018-10-31 13:02 | Outpatient (RCR) | payer MEDICARE | END 2018-11-19 | LOC: WCC 13:02 | PROVIDERS: ATTEND Internal Medicine Infectious Disease | DX: E11.621 Type 2 diabetes mellitus with foot ulcer (principal); E11.65 Type 2 diabetes mellitus with hyperglycemia; E11.649 Type 2 diabetes mellitus with hypoglycemia without coma; Y83.8 Other surgical procedures as the cause of abnormal reaction of the patient, or of later complication, without mention of misadventure at the time of the procedure; L97.516 Non-pressure chronic ulcer of other part of right foot with bone involvement without evidence of necrosis; R23.8 Other skin changes; Z01.810 Encounter for preprocedural cardiovascular examination; Z01.811 Encounter for preprocedural respiratory examination ==